=== PATIENT | female | born 1950 | race Caucasian/White ===

== ENCOUNTER 2025-03-20 10:33 | Outpatient (AMB) | payer MEDICARE, SELFPAY ==
--- NOTE | 2025-03-20 10:39 | A.OFFVIS_ITS ---
Vital Signs 3 03/20/25 10:40 Height 4 ft 11 in Weight 171 lb 1.259 oz BMI 34.5 BP 140/66 H Blood Pressure Location Rt brachial Position Sitting Pulse 76 Pulse Source Pulse Oximeter Pulse Oximetry (%) 96 Oxygen Delivery Method Room Air Intake Visit Reasons: Hyperparathyroidism,Osteoporosis Intake Note: New patient present today for Hyperparathyroidism and Osteoporosis. Prototype Carpenter Required: No Accompanied by: Self / Same As Patient Allergies No Known Allergies Allergy (Verified 03/20/25 10:44) Medication List - Last Reconciled 03/20/25 by Soco Costa MD acetaminophen ER (Tylenol 8 Hour) 650 mg PO Q12H alendronate (Fosamax) 70 mg PO QWEEK amlodipine 5 mg PO DAILY aspirin 81 mg PO DAILY chlorthalidone 25 mg PO DAILY coenzyme [id number]-[id number] E 100-100 mg-unit caps PO colestipol (Colestid) 5 grams PO DAILY collagen (bov)-calcium HMB-D3 15 gram-3 gram- 12.5 mcg/scoop sc PO dicyclomine 10 mg PO BID ergocalciferol (vitamin D2) 50 mcg PO DAILY meloxicam 15 mg PO DAILY omega-3 fatty acids 1,000 mg PO DAILY trazodone 25 mg PO DAILY upadacitinib ER (Rinvoq) 45 mg PO DAILY vitamins A,C,M-qxfq-mcrdzx 4,296 mcg-226 mg-90 mg (PreserVision AREDS) 1 cap PO BID HPI Comments Details: 74-year-old female here today for initial evaluation of osteoporosis/history of hyperparathyroidism. Was previously seeing Dr. Rodolfo Michael , at [facility] he is retired now so [facility], last seen spring 202401/17/2024 DEXA scan showed osteoporosis of the hip with a left femoral neck T- score of-2.9, osteopenia at the total hip with a T-score of-1.7, normal bone density of the forearm with T-score of -0.1. Patient brought in records of bone density from 2021, these are not scanned into her chart, shows osteoporosis of the femoral neck with a T-score of-2.7, osteopenia of the total hip with T-score of-1.6, normal bone density of the forearm with T-score of-0.4 at the 1/3 forearm. Osteoporosis new pt evaluation Post menopausal osteoporosis: Diagnosed in 2020 after she has kyphoplasty for L1-L5 compression after picking up a table Fracture History: 2020 :kyphoplasty for L1-L5 compression after picking up a table Height loss:was 5 ' 1 max height current 4' 11 Back pain: none Pharmacotherapeutic hx: fosamax 70 mg weekly since 2020 swictched Risedronate December 2022 restarted Fosamax October 012023 Family history: no history of osteoporosis, no parent fractured a hip Estrogen use: no major OCP use, 1 1 live , never breast fed Menstrual hx: post menopausal since late 30s, no HRT, per patient no investigation done Secondary risk factors: Steroid use: yes in the past for at least a year on prednisone on Crohns disease , budesonide November to January 2024 Hyperthyroidism: Neg Seizure medication use: None Chemo or Radiation use: Neg Heparin Use: Neg History of eating disorder: Negative salvage determiner immobilization: Negative History of kidney stones or disease: negative PI Use: no chronic use Chronic inflammatory lung disease: Negative Chronic inflammatory bowel disease: Crohns disease on Rinvoq Daily calcium intake: not on any calcium supplements , milk : none, cheese: daily one serving, yogurt: once in a while green leafy vegetable not much Vitamin D intake:1000 units daily , for the last year over 2023 Exercise:walks 5000s steps/20 mins daily Smoking history: quit 2008 , since age 15, 3 packs a week Dental: Has regular dental cleaning, no issues Physical exam General: sitting comfortably in no acute distress HEENT: normocephalic/atraumatic Cardiac: Regular heart rate Pulm: Normal pulmonary effort [facility] Medical History (Updated 03/20/25 @ 11:51 by Soco Costa MD) Osteoporosis Surgical History (Updated 03/20/25 @ 10:51 by Kirstie Carpenter CMA) History of intestinal surgery H/O kyphoplasty History of tonsillectomy History of appendectomy History of resection of terminal ileum Family History (Updated 02/26/25 @ 11:24 by BRIGETTE Cook) Mother End stage renal disease Father No problems noted. Social History Alcohol intake: current Alcohol intake frequency: a few times a month Patient Tobacco Use Status: Never used Tobacco Physical Exam Vital Signs: Last Vital Signs Pulse 76 03/20/25 10:40 BP 140/66 H 03/20/25 10:40 Pulse Ox 96 03/20/25 10:40 Oxygen Delivery Method Room Air 03/20/25 10:40 BMI result Body Mass Index 34.5 Assessment & Plan Assessment & Plan (1) Osteoporosis: Code(s): M81.0 - Age-related osteoporosis without current pathological fracture Category: Medical Qualifiers: Osteoporosis type: age-related Presence of current pathological fracture: without current pathological fracture Qualified Code(s): M81.0 - Age- related osteoporosis without current pathological fracture Plan: 74-year-old female coming in today for initial evaluation of osteoporosis with a history of hyperparathyroidism? Osteoporosis was diagnosed in 2020 after she had a L1-L5 compression fracture, fragility fractures status post kyphoplasty, started on Fosamax 70 mg weekly, she was switched to risedronate December 2022 due to issues with acid reflux and then due to insurance issues went back on Fosamax September 2023 which she continuous. No other fractures. 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 She has never had any parathyroid surgery. I do not have records of this hyperparathyroidism history in detail. Maybe it was secondary hyperparathyroidism in the setting of vitamin-D deficiency or poor nutritional intake of calcium. I would like to do blood work to look at her PTH levels and other labs that are related. However right now she barely has not any nutritional intake of calcium, I have asked her to continue vitamin-D 1000 units daily and increase nutritional intake of calcium and then do blood work in 8 weeks. We will also check her resorption markers have that time. 01/17/2024 DEXA scan showed osteoporosis of the hip with a left femoral neck T- score of-2.9, osteopenia at the total hip with a T-score of-1.7, normal bone density of the forearm with T-score of -0.1.Patient brought in records of bone density from 2021, these are not scanned into her chart, shows osteoporosis of the femoral neck with a T-score of-2.7, osteopenia of the total hip with T-score of-1.6, normal bone density of the forearm with T-score of-0.4 at the 1/3 forearm. More or less these bone densities show persistent osteoporosis of the left femoral neck with a bone density overall stable. She would be due for repeat bone density scan in December 2025. At that time she would have also completed a 5 year course of bisphosphonates, and we will decide if we can do a drug holiday versus if her bone density has worsened, does she need other medications. For now we will continue her on Fosamax. Plan: -Restart vitamin-D 1000 units daily -Incorporate 1000 mg of calcium in your diet, this usually amounts to 3 servings of calcium rich foods daily such as milk, yogurt, cheese -Continue Fosamax 70 mg weekly tablet -In about 8 weeks do blood work fasting around 08:00 at [facility], papers given to patient, please make sure they fax results to me -Do bone density scan in December 2025 -I will see you back in July 2025 to go over the results of your blood work Plan I spent 45 minutes in reviewing the record, seeing the patient and documenting in the medical record. Orders: Orders 2 Parathyroid Hormone Intact 8 Weeks M81.0 - Age-related osteoporosis without current pathological fracture Alkaline Phosphatase Bone 8 Weeks M81.0 - Age-related osteoporosis without current pathological fracture Collagen Type I C-Telopeptide 8 Weeks M81.0 - Age-related osteoporosis without current pathological fracture Creatinine 8 Weeks M81.0 - Age-related osteoporosis without current pathological fracture Immunofixation Pnl, Serum 8 Weeks M81.0 - Age-related osteoporosis without current pathological fracture XR DEXA appendicular skeleton 01/16/26 M81.0 - Age-related osteoporosis without current pathological fracture Albumin Level 8 Weeks M81.0 - Age-related osteoporosis without current pathological fracture Calcium 8 Weeks M81.0 - Age-related osteoporosis without current pathological fracture Calcium, Ionized 8 Weeks M81.0 - Age-related osteoporosis without current pathological fracture Phosphorus 8 Weeks M81.0 - Age-related osteoporosis without current pathological fracture Vitamin D 25-OH Total 8 Weeks M81.0 - Age-related osteoporosis without current pathological fracture Magnesium 8 Weeks M81.0 - Age-related osteoporosis without current pathological fracture Protein Electrophoresis, Serum 8 Weeks M81.0 - Age-related osteoporosis without current pathological fracture Medications: New 2 alendronate (Fosamax) 70 mg PO QWEEK 14 tabs 2RF Patient Instructions: Restart by vitamin-D 1000 units daily Incorporate 1000 mg of calcium in your diet, this usually amounts to 3 servings of calcium rich foods daily such as milk, yogurt, cheese Continue Fosamax 70 mg weekly tablet In about 8 weeks do blood work fasting around 08:00 at [facility], papers given to patient, please make sure they fax results to me Do bone density scan in December 2025 I will see you back in July 2025 to go over the results of your blood work Coding Level of Care Code New Pt Level 4 (22970) Diagnoses Age-related osteoporosis without current pathological fracture M81.0 Osteoporosis type: age-related Presence of current pathological fracture: without current pathological fracture Time Spent (min) 45
[2025-03-20 10:40] VITALS: BP 140/66; PULSE 76; O2SAT 96; BMI 34.5
--- OUTSIDE RECORDS SUMMARY | 2025-03-20 12:21 | XMS_ITS | Clinical Summary ---
Author Organization [facility] Address [address] [place] [address] Care Team Providers Care Calender Feeder Name Role Phone Lexus Barnes Primary Care Provider Anita vailable Allergies No known active allergies Medications Medication Sig Dispensed Refills Start Date End Date Status Multiple Vitamins-Minerals (MULTIVITAMIN ADULT PO) Take 1 tablet by mouth daily. 0 Active acetaminophen (Acetaminophen 8 Hour) 650 MG CR tablet Take 650 mg by mouth every 8 (eight) hours as needed for pain. 0 Active colestipol (COLESTID) 5 g packet Take 5 g by mouth 2 (two) times a day. 0 Active chlorthalidone (HYGROTON) 25 MG tablet Take 25 mg by mouth daily. 0 Active vitamin C (ASCORBIC ACID) 250 MG tablet Take 1,000 mg by mouth daily. 0 Active oxyCODONE-acetaminophe n (Percocet) 5-325 MG per tablet Take 1 tablet by mouth every 8 (eight) hours as needed for pain. 0 Active calcium citrate-vitamin D (CITRACAL+D) 315-200 MG-UNIT per tablet Take 2 tablets by mouth daily. 0 Active Docusate Sodium (COLACE PO) Take by mouth every other day. 0 Active Active Problems Problem Noted Date Diagnosed Date Crohn's disease 07/02/2020 Reactive leukocytosis 07/02/2020 Reactive thrombocytosis 05/25/2020 Overview: Overview: Mild leukocytosis with macrocytosis. Referred to hematology. Compression fracture of L3 vertebra 04/19/2020 Diplopia 07/26/2019 Overview: Overview: Dr Vigil-MRI brain-07/16/2019-scattered foci of T2 signal abnormality in the supratentorial white matter and estephanie are nonspecific, likely related to mild chronic microvascular ischemic change. No evidence of acute or subacute infarction, mass-effect or abnormal enhancement. Hypertension 05/20/2019 Class 1 obesity due to exces s calories without serious comorbidity with body mass index (BMI) of 32.0 to 32.9 in adult 05/02/2017 S/P appy 04/04/2013 Osteoporosis 01/11/2011 Overview: Overview: Patient deferred Fosamax or Boniva. Will need Endo eval. Family History Medical History Relation Name Comments Diabetes Mother Kidney failure Mother Stroke Mother Diabetes Sister Heart attack Sister Relation Name Status Comments Mother Sister (Age 63) Social History Tobacco Use Types Packs/Day Years Used Date Smoking Tobacco: Every Day Cigarettes Smokeless Tobacco: Never Alcohol Use Standard Drinks/Week Comments No 0 (1 standard drink = 0.6 oz pur e alcohol) Sex and Gender Information Value Date Recorded Sex Assigned at Not on file Gender Identity Not on file Sexual Orientation Not on file Job Start Date Occupation Industry Not on file Not on file Not on file Last Filed Vital Signs Vital Sign Reading Time Taken Comments Blood Pressure 110/63 07/02/2020 10:22 AM EST Pulse 83 07/02/2020 10:22 AM EST Temperature 36.3 C (97.4 F) 07/02/2020 10:22 AM EST Respiratory Rate - - Oxygen Saturation 95% 07/02/2020 10:22 AM EST Inhaled Oxygen Concentration - - Weight 78.9 kg (174 lb) 07/02/2020 10:22 AM EST Height 154.9 cm (5' 1 ) 07/02/2020 10:22 AM EST Body Mass Index 32.88 07/02/2020 10:22 AM EST Plan of Treatment Health Maintenance Due Date Last Done Comments Hepatitis C Screening 1950 COVID-19 Vaccine (#1) 01/02/1951 Depression Screening 1961 Preventative Health Evaluation 1967 Colon Cancer Screening (Colonoscopy) 1994 Fall Risk Assessment 2014 Osteoporosis Screening (DEXA Scan) 2014 Shingrix-Zoster Vaccine (2 of 2) 03/20/2020 01/24/2020 DTap / Tdap / Td (2 - Td or Tdap) 03/22/2022 03/22/2012 RSV Adult > 60+ Yrs or (1 - 1-dose 75+ series) 2024 Influenza Vaccine (#1) 2025 0, 04/02/2019, 04/28/2018, Additional history exists Pneumococcal Vaccine Completed 05/03/2016, 03/23/2015, 11/08/2004 Hepatitis B Vaccines Aged Out No long er eligible based on patient's age to complete this topic RSV Ped < 20 months Aged Out No longe r eligible based on patient's age to complete this topic Care Teams Calender Feeder Relationship Specialty Start Date End Date Lexus Barnes PCP - General Internal Medicine 05/11/20
--- OUTSIDE RECORDS SUMMARY | 2025-03-20 12:21 | XMS_ITS ---
Author Name [facility] Organization Unknown Care Team Organization Name Specialty Phone Email Start Date End [facility] Marycruz Mitchell MD Primary Care 04/26/2022 02/05/2024
--- OUTSIDE RECORDS SUMMARY | 2025-03-20 12:21 | XMS_ITS | Continuity of Care Document ---
Author Organization [facility] Address [address] [facility] [address] [place] [id number] Insurance Providers Payer Plan Claims Address Claims Phone Policy Number Group Number Relation Employer Guarantor Name Guarantor Guarantor Address Guarantor Phone [employer] PAT[employer] S [employer] JESSICA VINES TTS [address], [place] [address] [id number] Self Vannessa Magaña 1950 [address] [place] [address] [employer] OF YO[employer]NA PATTERSON S Blue [employer] Blue Shiel d Of Jessica vines tts [address], [place] [address] tel:[phone] Self Vannessa Magaña 1950 [address] [place] [address] Problems Unknown Problems Results Test Value / Unit Interpretation Reference Ran Comp. Metabolic Panel (14)[[id number]] Collected: 05/03/2024 04:48 PM Specimen Received: 05/03/2024 05:00 AM Source: [facility] Glucose [[id number]] 95 mg/dL 70-99 mg/dL BUN [876108] 21 mg/dL 8-27 mg/dL Creatinine [501152] 0.91 mg/dL 0.57-1.0 0 mg/dL eGFR [346860] 66 mL/min/1.73 >59 mL/min/1 .73 BUN/Creatinine Ratio [419986] 23 12-28 Sodium [096685] 140 mmol/L 134-144 mmol /L Potassium [297899] 3.8 mmol/L 3.5-5.2 m mol/L Chloride [344122] 100 mmol/L 96-106 mmo l/L Carbon Dioxide, Total [863362] 25 mmol/L 20-29 mmol/L Calcium [150416] 9.8 mg/dL 8.7-10.3 mg /dL Protein, Total [826494] 6.6 g/dL 6.0- 8.5 g/dL Albumin [856817] 4.1 g/dL 3.8-4.8 g/d L Globulin, Total [908296] 2.5 g/dL 1.5 -4.5 g/dL Bilirubin, Total [547402] 0.2 mg/dL 0. 0-1.2 mg/dL Alkaline Phosphatase [359907] 53 IU/L 44-121 IU/L AST (SGOT) [060295] 30 IU/L 0-40 IU/ L ALT (SGPT) [348433] 27 IU/L 0-32 IU/ L Lipid Panel[[id number]] Collected: 05/03/2024 04:48 PM Specimen Received: 05/03/2024 05:00 AM Source: [facility] Cholesterol, Total [565209] 193 mg/dL 100-199 mg/dL Triglycerides [228186] 142 mg/dL 0-149 mg/dL HDL Cholesterol [798813] 80 mg/dL >39 mg/dL VLDL Cholesterol Ricardo [439580] 24 mg/dL 5-40 mg/dL LDL Chol Calc (NIH) [637576] 89 mg/dL 0-99 mg/dL Hemoglobin A1c[[id number]] Collected: 05/03/2024 04:48 PM Specimen Received: 05/03/2024 05:00 AM Source: [facility] Hemoglobin A1c [[id number]] 5.6 % 4.8- 5.6 % . Prediabetes: 5.7 - 6.4 Sara betes: >6.4 Glycemic control for adults with diabetes: 7.0 Allergies, adverse reactions, alerts No known allergies and adverse reactions Medications No administered medications reported Vital Signs No vital signs reported Social History No smoking Hx information available
--- OUTSIDE RECORDS SUMMARY | 2025-03-20 12:21 | XMS_ITS | Continuity of Care Document ---
Author Organization [facility] [address] [place] [address] Phone [phone] Care Team Providers Care [employer] Name Role Phone Otto Cabrera Care Team Information Receive r [phone] Problems Active Problems Provider Date Osteoporosis Rodolfo Michael M.D. Onset: 05/2022 Essential hypertension Rodolfo Michael M.D. Ons et: 02/28/2022 Osteoarthritis Rodolfo Michael M.D. Onset: Crohn's disease Rodolfo Michael M.D. Onset: Inactive Problems Hypothyroidism Rodolfo Michael M.D. Onset: 05/2022 Inactive: 05/24/2024 Social History Type Date Description Comments Sex Female Sex Unknown Tobacco Use Start: Unknown Never Smoked Cigarettes Smoking Status Reviewed: 05/24/24 Never Smoked Cigaret kallie ETOH Use Rarely consumes alcohol Allergies and adverse reactions Description No Known Drug Allergies Medications Active Medications SIG Qnty Indications Ordering Provider Date Alendronate Aokbpp39nd Tablets 1 tab by mouth every week as directed 12takathy Vasquez M.D. 11/20/2023 [id number] Tablets 1 by mouth every day 90takathy Michael M.D. 02/28/2022 Amlodipine Hyqhkjxg2eb Tablets 1 by mouth every day Rodolfo Michael M.D. Colestipol HCL5gm Packet 1packet by mouth every other day Rodolfo Avery MD [id number] Tablets ER 24HR Take 1 daily Unknown Vital Signs Date Vital Result Comment 05/24/2024 10:35am BP Systolic 150 mmHg BP Diastolic 102 mmHg Heart Rate 97 /min Height 60 inches 5'0 Weight 175.12 lb BMI (Body Mass Index) 34.2 kg/m2 Results Test Acquired Date Facility Test Result H/L Range Note Albumin 07/30/2024 [facility] Albumin 4.2 g/dL 3.8-4.8 PTH, Intact 07/30/2024 [facility] PTH, Intact 71 pg/mL High 15-65 Vitamin D, 25-Hydroxy 07/30/2024 [facility] Vitamin D, 25-Hydroxy 24.2 ng/mL Low 30.0-100.0 1 Phosphorus 07/30/2024 [facility] Phosphorus 3.2 mg/dL 3.0-4.3 Alkaline Phosphatase 07/30/2024 [facility] Alkaline Phosphatase 67 IU/L 44-121 N-Telopeptide, Urine 07/30/2024 [facility] N-Telopeptide 250 nmolBCE Not Estab. Creatinine, Urine 100.3 mg/dL Not Estab. N-Telo/Creat. Ratio 28 nMBCE/mMCr 0-89 Interpretive Guide: See Comment: 2 Calcium 07/30/2024 [facility] Calcium 9.9 mg/dL 8.7-10.3 Cortisol, Urinary Free By HPLC 05/30/2024 [facility] Cortisol,F,ug/ L,U 5 ug/L Undefined Cortisol,F,ug/ 24hr,U 9 ug/24hr 6-42 Calcium, 24HR Urine 05/30/2024 [facility] Calcium, Urine 1.3 mg/dL Not Estab. Calcium, Urine 24hr 24 mg/24hr 0-320 Creatinine, 24-Hour Urine 05/30/2024 [facility] Creatinine, Urine 51.7 mg/dL Not Estab. Creatinine, Ur 24hr 956 mg/24hr 800-1800 PTH, Intact 05/27/2024 [facility] PTH, Intact 81 pg/mL High 15-65 Phosphorus 05/27/2024 [facility] Phosphorus 3.1 mg/dL 3.0-4.3 TSH+Free T4 05/27/2024 [facility] TSH 3.760 uIU/mL 0.450-4.500 T4,Free(Direct ) 1.32 ng/dL 0.82-1.77 Calcium 05/29/2023 [facility] Calcium 9.9 mg/dL (8.6-10.5) Albumin 05/29/2023 [facility] Albumin 4.0 GM/DL (3.4-4.8) 25Oh Vitamin D 05/29/2023 [facility] 25Oh Vitamin D 25.2 NG/ML (20-50) Complete Auto Blood Count 09/02/2022 [facility] WBC 9.5 K/MM3 (4.0-11.0) RBC 4.35 M/MM3 (4.20-5.40) HGB 13.4 GM/DL (11.7-15.5) HCT 41.1 % (35.7-45.8) MCV 94.5 FL (80.0-100.0 ) MCH 30.8 pg (27.0-34.0) MCHC 32.6 g/dL Low (33.0-37.0) PLT 480 K/MM3 High (150-460) RDW-SD 51.2 FL High (<47.0) MPV 9.4 FL (9.4-12.4) Automated NRBC 0.0 #/100WBC'S Abs. NRBC 0.0 K/MM3 Cholesterol, Total 09/02/2022 [facility] Cholesterol, Total 195 mg/dL (<200) Comprehensive Metabolic Panl 09/02/2022 [facility] Glucose 99 mg/dL (70-99) BUN 24 mg/dL High (8-23) Creatinine 0.8 mg/dL (0.5-1.0) Sodium 141 mmol/L (133-145) Potassium 4.0 mmol/L (3.6-5.2) Chloride 102 mmol/L (98-107) Bicarbonate 29 mmol/L (22-29) Anion Gap 10 (4-17) Albumin 4.3 GM/DL (3.4-4.8) Calcium 9.6 mg/dL (8.6-10.5) Bilirubin,Tota l 0.2 mg/dL (0-1.2) Total Protein 6.6 GM/DL (6.2-8.2 ) Ag Ratio 1.9 Ast 22 U/L (0-32) Alk Phos 66 U/L (35-104) Alt 24 U/L (0-33) Estimated GFR Creatinine 73 ML/MIN/1.7 3M2 3 LDL Cholesterol, Direct 09/02/2022 [facility] LDL Cholesterol, Direct 100 mg/dL (<130) Iron & Tibc 09/02/2022 [facility] Iron 86 g/dL (30-160) Unsaturated Iron Binding [place] 300 g/dL (110-370) Est T. Iron Bind Capacity 386 g/dL (140-530) % Iron Saturation 22 % (20-55) HDL Chol 09/02/2022 [facility] HDL Chol 69 mg/dL (>39) Anti-Hepatitis C 09/02/2022 [facility] Anti-Hepatitis C NEGATIVE Normal (Neg) 4 Vitamin B12 09/02/2022 [facility] Vitamin B12 303 pg/mL (232-1245) Ferritin 09/02/2022 [facility] Ferritin 53 NG/ML (14-283) 25Oh Vitamin D 09/02/2022 [facility] 25Oh Vitamin D 29.7 NG/ML (20-50) Urinary Microalbumin 09/02/2022 [facility] Micro-Albumin <12.0 mg/L (<20) 5 Malb/Creat Ratio Unable to calcul <SEE NOTE> MG/GM (0-20) 6 Urine Creat For Micro Albumin 112.0 mg/dL TSH With Reflex To FT4 08/22/2022 [facility] TSH With Reflex To FT4 4.13 uIU/mL (0.4-4.2) Free T4 08/22/2022 [facility] Free T4 1.25 ng/dL (0.70-1.80) 1 Vitamin D deficiency has been defined by the [place] of [employer] and an Endocrine Society practice guideline as a level of serum 25-OH vitamin D less than 20 ng/mL (1,2). The Endocrine Society went on to further define vitamin D insufficiency as a level between 21 and 29 ng/mL (2). 1. IOM ([place] of [employer]). 2010. Dietary reference intakes for calcium and D. [place]: The National Academies Press. 2. Charles MF, Radha NC, Connie MAYEN, et al. Evaluation, treatment, and prevention of vitamin D deficiency: an Endocrine Society clinical practice guideline. JCEM. 2010; 96(7):1911-30. 2 The N-telopeptide an d Creatinine are used to calculate the N-telo/Creat. Ratio which is referred to as NTx . Suggested guidelines for the clinical use of NTx are as follows: 1. Menopausal Women not on Hormone Replacement Therapy (HRT): Women with a baseline NTx value >38 are at significant risk for a decrease in bone mineral density (BMD) after 1 year compared to women on HRT. The probability of a decline in BMD increases with NTx value as follows: (1): Baseline NTx Probability of Decrease in BMD 18- 38 1.4 p=0.28 38- 51 2.5 p=0.03 51- 67 3.8 p=0.0006 67-188 17.3 p=0.0001 2. Menopausal Women Receiving Antiresorptive Therapy: The probability that treatment is effective after three months is increased when the measured NTx value is <or=38 nM BCE/mM PRIMARY SPECIAL EDUCATOR, or NTx has decreased >or=30% from baseline.[1] 3. Patients with Paget's Disease of Bone: The probability that treatment is effective after one month is increased when the measured NTx value is within the reference range, or NTx has decreased >or=30% from baseline.[2] 1. Chinyere CH, Stevens NH, Dariusz GS, et al. Am J Med, 102:29-37,1997. (1):M757, 1996. 2. Bone H, Otilia J, et al. J Bone Min Res.11(1):M757,1996 3 Creatinine based est imated glomerular filtration (eGFR) in adults is calculated using the National Kidney Foundation recommended 2020 CKD-EPI equation. Estimates GFR from serum creatinine, age and sex. 4 Reference range: Neg ative This test was performed on the [employer] immunoassay system. 5 The urine microalbum in test is designed to monitor renal function. When screening for Bence Howard proteinuria, urine electrophoresis is recommended. 6 Unable to calculate Procedures Date Code Description Status 12/02/2024 NSHOWOFF No Show Office Visit Complet ed Medical Devices Description No Information Available Encounters Type Date Location Provider Dx Diagnosis Office Visit 05/24/2024 10:30a Main Office JAMEL Branham M81.0 Age-related osteoporosis w/o current pathological fracture Assessments Date Code Description Provider 05/24/2024 M81.0 Age-related oste oporosis without current pathological fracture JAMEL Branham Plan of Treatment 05/24/2024 - JAMEL Branham* M81.0 Age-related osteoporosis without current pathological fracture* New Xrays:* XR Thoracic Spine 2 Views, Ordered: 05/24/24 Functional Status Description No Information Available Mental Status Description No Information Available Referrals Description No Information Available
--- OUTSIDE RECORDS SUMMARY | 2025-03-20 12:21 | XMS_ITS | Clinical Summary ---
Author Organization [facility] [address] [facility] Address [address] [place] [address] Phone Care Team Providers Care Retail Sales Director Name Role Phone Kelly Christianson MD Primary Care Provider Allergies No known active allergies Medications chlorthalidone (HYGROTON) 25 mg tablet Take 1 Tablet by mouth daily. 3 Active amLODIPine (NORVASC) 5 mg tablet Take 1 Tablet by mouth daily. 3 Active alendronate (FOSAMAX) 70 mg tablet Take 1 tablet by mouth every 7 days. Take on empty stomach with 8 oz of water. Do not lay down after taking medication. 1 Active vit C/E/Zn/coppr/lut ein/zeaxan (PRESERVISION AREDS-2 ORAL) Take by mouth 2 times daily. Active colestipoL (COLESTID) 5 gram packet MIX AND DRINK 1 PACKET (5 GRAMS) TWICE A DAY 0 Active upadacitinib (Rinvoq) 30 mg tablet extended release 24 hr Take by mouth. A ctive coenzyme Q-10 100 mg capsule Take 1 capsule (100 mg total) by mouth 1 (one) time each day. Active microfibrillar collagen powder Apply topically if needed for wound care. Active calcium carb/vitamin D3/vit K1 (CALCIUM-VITAMIN D3-VITAMIN K ORAL) Take by mouth. Activ e budesonide DR (ENTOCORT EC) 3 mg 24 hr capsuleIndicatio ns:Crohn's disease of both small and large intestine with intestinal obstruction (CMS/HCC V24, CMS/HCC V28) TAKE 3 CAPSULES BY MOUTH EVERY MORNING FOR 1 MONTH AND CALL OFFICE TO DISCUSS TAPER 270 capsule 2 5 03/26/20 25 Active Additional Information Patient not taking.Reported on 01/28/2025 aspirin 81 mg EC tablet Take 1 tablet (81 mg total) by mouth 1 (one) time each day. Active Active Problems Problem Noted Date Diagnosed Date Class 1 obesity due to exces s calories without serious comorbidity with body mass index (BMI) of 32.0 to 32.9 in adult 06/10/2024 Central obesity 12/03/2021 Thrombocytosis 05/25/2020 Overview (06/10/2024): Mild leukocytosis with macrocytosis. Possible inflammatory from crohns-seen by Dr Mitchell Compression fracture of L3 lumbar vertebra, sequ nikko 04/19/2020 Overview (06/10/2024): Referred to Neurosurg for vertebroplasty Diplopia 07/26/2019 Overview (06/10/2024): Dr Vigil-MRI brain-07/16/2019-scattered foci of T2 signal abnormality in the supratentorial white matter and estephanie are nonspecific, likely related to mild chronic microvascular ischemic change. No evidence of acute or subacute infarction, mass-effect or abnormal enhancement. Hypertension 05/20/2019 Crohn's disease of both smal l and large intestine with intestinal obstruction (CMS/HCC V24, CMS/HCC V28) 05/01/2019 Assessment & Plan (01/28/2025 2:32 PM EDT): 74-year-old female with history of ileocolonic Crohn's disease presenting for follow-up. Unfortunately she just shows no significant improvement despite the use of Humira, Rynvoq as well as budesonide currently. Review means of imaging studies document some improvement though persistent inflammatory changes of the distal small bowel and colon. Discussion was had as to the options the patient has including changing to a new medication of a different class such as Entyvio. Also discussed the option of a second opinion. 1. Wean off of budesonide. I recommended patient decrease to 1 tablet a day for 10 days and then off as it appears to be not improving her situation. 2. Discussed with patient potential change to Entyvio. Patient would like to contemplate her options. 3. Will reach out to patient next week to reevaluate other potential medication options. 4. Discussed potential role of a second opinion either here in [place] or at a IBD center. 5. Continue to observe. Assessment & Plan (10/01/2024 1:35 PM EDT): 74-year-old female with history of reported ileocolonic Crohn's disease presenting for follow-up. According to the patient, the use of her now second biologic has not really improved her symptomatology. We did spend some time reviewing her initial MRI suggesting small bowel pathology. We discussed the possibility that her symptoms currently are not related to Crohn's disease but more related to the irritable bowel syndrome. I expressed my reluctance and shifting Biologics without further objective data as to the status of her small bowel. We discussed the possibility that she may not need the biologic therapy and she may benefit from IBS therapy. Therefore we will obtain further objective data with the MRI. 1. MR enterography to be ordered for at [facility] to compare with prior study. 2. Continue current medication profile for now. 3. Should the MRI be negative, would consider discontinuing the biologic and ramping up antispasmodic therapy. 4. Routine follow-up in 3 months. 5. Will reach out after imaging testing. Orders: MR Enterography (Abd/Pelvis) wo and w Contrast; Future Osteoporosis 01/11/2011 Overview (06/10/2024): Patient deferred Fosamax or Boniva. Seen donovan Mitchell in onc- Zolendronic acid once a year recommended Crohn's disease (CMS/HCC V24, CMS/HCC V28) 12/30 Overview (06/10/2024): Had bowel resection 1977 Encounters Date Type Department Care Team Description 02/03/2025 Telephone Gastroenterology - [address] [facility] [address] [place] [address] Rodolfo Avery MD 01/29/2025 Telephone Gastroenterology - [address] [facility] [address] [place] [address] Rodolfo Avery MD 01/28/2025 2:20 PM EDT Office Visit Gastroenterology - [address] [place] [address] Rodolfo Avery MD Crohn's disease of both small and large intestine with intestinal obstruction (CMS/HCC V24, CMS/HCC V28) (Primary Dx) 01/06/2025 Telephone Gastroenterology - [address] [place] [address] Mitzi Cook PA from Last 3 Months Immunizations Immunization Administration Dates Next Due Influenza trivalent, 0.5mL ( Fluzone High-dose) 65yo and older 03/06/2020,04/02/2019,04/28/2018 Influenza trivalent, with pr eservative (Fluzone; Afluria) 6mo and older 04/18/2016,03/23/2015,04/01/2014,04/04,03/22/2012,03/05/2010 Influenza, Unspecified 05/03/2022,04/09/2017 [email or web address] SARS-CoV-2 COVID-19, mRNA, LNP-S, preservative free 09/30/2020,09/09/2020 Pneumococcal conjugate 13 va lent (Prevnar 13, PCV13) 2mo and older 03/23/2015 Pneumococcal polysaccharide 23 valent (Pneumovax 23) 2yo and older 05/03/2016,11/08/2004 Td Tetanus diptheria (Tdvax) 7yo and older 08/19/2005 Tdap Tetanus diptheria acell ular pertussis (Boostrix; Adacel) 7yo and older 03/22/2012 Zoster Live 12/30/2010 Zoster recombinant (Shingrix ) 19yo and older 01/24/2020 Surgical History Surgery Date Site/Laterality Comments BOWEL RESECTION 1976 PROCEDURE: HISTORICAL BOWEL RESECTION BREAST SURGERY 2019 Left PROCEDURE: DC UNLISTED PROCEDURE BREAST; COMMENT: benign COLONOSCOPY 07/28/2011 PROCEDURE: HISTORICAL COLONOSCOPY; COMMENT: mild ulceration at ileo-ascending anastomosis APPENDECTOMY PROCEDURE: DC APPENDECTOMY TONSILLECTOMY ADENOIDECTOMY, BILATERAL MYRINGOTOMY AND TUBES PROCEDURE: DC TONSILLECTOMY & ADENOIDECTOMY <AGE 12 BACK SURGERY 06/2020 PROCEDURE: HISTORICAL BACK SURGERY; COMMENT: L3-5 kyphoplasty COLONOSCOPY W/ BIOPSIES 10/17/2021 - 11/16/2021 Medical History Medical History Date Comments Osteopenia 01/11/2011 DX:Osteopenia S/P appy 04/04/2013 DX:S/P appy Essential hypertension DX:Essent ial hypertension Obesity History of resection of terminal ileum IBS (irritable bowel syndrome) Leukocytosis Low vitamin D level Family History Medical History Relation Name Comments Diabetes Mother Stroke Mother Diabetes Sister 1 Heart attack Sister 2 age 63, Breast cancer Neg Hx Relation Name Status Comments Father Mother renal failure Sister 1 Sister 2 Sister 3 Alive Sister 4 from [place] Son Alive Social History Tobacco Use Types Packs/Day Years Used Date Smoking Tobacco: Former Cigarettes 0.5 38.6 0 1970 - 02/17/2009 Smokeless Tobacco: Never Tobacco Cessation:Counseling Given: Not Answered Alcohol Use Standard Drinks/Week Comments Yes 0 (1 standard drink = 0.6 oz pur e alcohol) rare Comments Unknown Sex and Gender Information Value Date Recorded Sex Assigned at Female 09/05/2024 11:33 AM EDT Legal Sex Female 7:13 PM EST Gender Identity Female 09/05/2024 11:33 AM EDT Sexual Orientation Not on file Obstetrics History Last Filed Vital Signs Vital Sign Reading Time Taken Comments Blood Pressure 153/64 11/06/2024 11:24 AM EDT Pulse 74 11/06/2024 11:24 AM EDT Temperature 36.9 C (98.5 F) 11/06/2024 11:24 AM EDT Respiratory Rate - - Oxygen Saturation 100% 11/06/2024 11:24 AM EDT Inhaled Oxygen Concentration - - Weight 78.7 kg (173 lb 9.6 oz) 01/28/2025 1:59 P M EDT Height 149.9 cm (4' 11 ) 01/28/2025 1:59 PM EDT Body Mass Index 35.06 01/28/2025 1:59 PM EDT Plan of Treatment Health Maintenance Due Date Last Done Comments Falls Risk Assessment 05/28/2022 Medicare Annual Wellness Visit 05/28/2022 Social Influencers of Health Screening 05/28/2022 Hypertension/CHF/CAD Annual BMP Blood Test 08/02/2023 08/02/2022 Depression Screening 06/19/2024 RSV Immunization Adult Patients (1 - 1-dose 75+ series) 2024 COVID-19 Vaccine (4 - 2024- season) 2025 06/08/2021, 09/30/2020, 09/09/2020 Influenza Vaccine (#1) 2025 , 04/20/2023, 05/03/2022, Additional history exists Cholesterol Screening (Lipid Panel) 12/30/2026 12/30/2021 Osteoporosis Screening (Bone Density Screening) 05/02/2027 05/02/2017 Colorectal Cancer Screening: Colonoscopy 10/30/2031 10/29/2021, 10/29/2021 DTaP,Tdap,and Td Vaccines (5 - Td or Tdap) 02/02/2033 02/02/2023, 03/22/2022, 03/22/2012, Additional history exists Hepatitis C Screening Completed 04/04/2013 Zoster Vaccines Completed 05/02/2020, 12/2019, 12/30/2010 Pneumococcal Vaccine: 50+ Years Completed 08/29/2022, 05/03/2016, 05/03/2016, Additional history exists Hepatitis B Vaccines Completed 11/14/2024, 09/03/2024, 05/31/2024 HIB Vaccines Aged Out No longer eligi ble based on patient's age to complete this topic HPV Vaccines Aged Out No longer eligi ble based on patient's age to complete this topic Hepatitis A Vaccines Aged Out No long er eligible based on patient's age to complete this topic IPV Vaccines Aged Out No longer eligi ble based on patient's age to complete this topic MMR Vaccines Aged Out No longer eligi ble based on patient's age to complete this topic Meningococcal ACWY Vaccine Aged Out N o longer eligible based on patient's age to complete this topic Meningococcal B Vaccine Aged Out No l onger eligible based on patient's age to complete this topic RSV Immunization Patients Under 20 months Aged Out No longer eligible based on patient's age to complete this topic Varicella Vaccines Aged Out No longer eligible based on patient's age to complete this topic Procedures Procedure Name Priority Date/Time Associated Diagnosis Comments HM ANNUAL BMP BLOOD TEST Routine 08/02/2022 LIPID PANEL Routine 12/30/2021 COLONOSCOPY Routine 10/29/2021 DXA BONE DENSITY STUDY 1+ SITS AXIAL SKEL Routine 05/02/2017 10:48 AM EST Other specified disorders of bone density and structure, unspecified site HEPATITIS C SCREENING Routine 04/04/2013 from Last 3 Months or Most Recently Relevant to Health Maintenance Results * Annual BMP Blood Test (08/02/2022) [facility] Annual BMP Blood Test abstracted [facility] Provider HEALTH MAINTENANCE Final Result * (ABNORMAL) Lipid panel (12/30/2021) [facility] LDL/HDL Ratio 3 0 - 4 Triglycerides 250(A) 0 - 150 mg/dL Cholesterol 191 0 - 200 mg/dL HDL 62 >=40 mg/dL LDL Cholesterol 79 0 - 100 mg/dL Blood Venous blood specimen / Unknown [facility] Provider LAB BLOOD ORDERABLES Pricila l Result * Colonoscopy (10/29/2021) [facility] Colonoscopy no interpretation , abstracted Anatomical Region Laterality Modality Other [facility] Provider HEALTH MAINTENANCE Final Result * DXA BONE DENSITY STUDY 1+ SITS AXIAL SKEL (05/02/2017 10:48 AM EST) Anatomical Region Laterality Modality Bone Densitometr y 02/28/2017 11:4 2 AM EDT Narrative 05/02/2017 1:36 PM EST BONE DENSITY Lumbar Spine T-score is -1.9 (SD relative to 20-29 y/o adult) Z-score is +0.1 (SD relative to age matched peers) This is consistent with osteopenia by criteria defined by the WHO. Left Hip T-score is -2.8 Z-score is -1.1 This is consistent with osteoporosis by criteria defined by the WHO. Comparison exam(s): no statistically significant change in the bone density of the hip and lumbar spine when compared to most recent bone density examination Confidence level is +/-95%. Impression: Based on the World Health Organization criteria, Vannessa Magaña should be classified as having osteoporosis. [facility] Department of Internal Medicine recommends using National Osteoporosis Foundation (NOF) guidelines in treatment decisions related to osteoporosis. NOF guidelines suggest considering treatment for postmenopausal women and men aged 50 or older presenting with the following: History of hip or vertebral fracture. T-score less than or equal to -2.5 (DXA) at the femoral neck, total hip, or spine, after appropriate evaluation to exclude secondary causes. Low bone mass (T-score between -1.0 and -2.5 at the femoral neck or spine) AND a 10-year probability of a hip fracture greater than or equal to 3% OR a 10-year probability of a major osteoporosis-related fracture greater than or equal to 20% based on the [place]-adapted WHO algorithm Please note that all treatment decisions require clinical judgment and consideration of individual patient factors, including patient preferences, co-morbidities, previous drug use, risk factors not captured in the FRAX model (e.g., frailty, falls, vitamin D deficiency, increased bone turnover, interval significant decline in bone density) and possible under- or over-estimation of fracture risk by FRAX. Procedure Note Carmine Christianson MD - 07/21/2023 BONE DENSITY Lumbar Spine T-score is -1.9 (SD relative to 20-29 y/o adult) Z-score is +0.1 (SD relative to age matched peers) This is consistent with osteopenia by criteria defined by the WHO. Left Hip T-score is -2.8 Z-score is -1.1 This is consistent with osteoporosis by criteria defined by the WHO. Comparison exam(s): no statistically significant change in the bonedensity of the hip and lumbar spine when compared to most recent bonedensity examination Confidence level is +/-95%. Impression: Based on the World Health Organization criteria, Vannessa Magaña should beclassified as having osteoporosis. [facility] Department of Internal Medicine recommendsusing National Osteoporosis Foundation (NOF) guidelines in treatmentdecisions related to osteoporosis. NOF guidelines suggest consideringtreatment for postmenopausal women and men aged 50 or older presentingwith the following: History of hip or vertebral fracture. T-score less than or equal to -2.5 (DXA) at the femoral neck, total hip,or spine, after appropriate evaluation to exclude secondary causes. Low bone mass (T-score between -1.0 and -2.5 at the femoral neck or spine)AND a 10-year probability of a hip fracture greater than or equal to 3% ORa 10-year probability of a major osteoporosis-related fracture greaterthan or equal to 20% based on the [place]-adapted WHO algorithm Please note that all treatment decisions require clinical judgment andconsideration of individual patient factors, including patientpreferences, co-morbidities, previous drug use, risk factors not capturedin the FRAX model (e.g., frailty, falls, vitamin D deficiency, increasedbone turnover, interval significant decline in bone density) and possibleunder- or over-estimation of fracture risk by FRAX. Lexus Barnes MD IMG DXA PROCEDURES Pricila l Result * Hepatitis C Screening (04/04/2013) [facility] Hepatitis C Screening abstracted Historical Provider HEALTH MAINTENANCE Final Result from Last 3 Months or Most Recently Relevant to Health Maintenance Insurance [facility] MEDICARE ADVANTAGE [facility] MEDICARE ADVANTAGE GENERIC on file Advance Directives Documents on File Type Date Recorded Patient Electronic Health Records Specialist Expl [facility] Health Care Decision (hx) 08/09/2020 AD PHILIPPE DIRECTIVE Care Teams Retail Sales Director Relationship Specialty Start Date End Date Kelly Christianson MD [address] [place] [address] PCP - General Internal Medicine 06/07/24
--- OUTSIDE RECORDS SUMMARY | 2025-03-20 12:21 | XMS_ITS | Continuity of Care Document ---
Author Organization [facility] Address [address] [facility] [address] [place] [id number] Insurance Providers Payer Plan Claims Address Claims Phone Policy Number Group Number Relation Employer Guarantor Name Guarantor Guarantor Address Guarantor Phone [employer] JESSICA VINES TTS [address], [place] [address] [id number] Self Vannessa Magaña [address] [place] [address] [employer] OF [employer] S Blue [employer] Blue Shiel d Of Jessica vines tts [id number], [place] [address] tel:[phone] Self Vannessa Magaña [address] [place] [address] Problems Unknown Problems Results Test Value / Unit Interpretation Reference Ran Comp. Metabolic Panel ([id number]] Collected: 05/03/2024 04:48 PM Specimen Received: 05/03/2024 05:00 AM Source: [facility] Glucose [950941] 95 mg/dL 70-99 mg/dL BUN [303868] 21 mg/dL 8-27 mg/dL Creatinine [559306] 0.91 mg/dL 0.57-1.0 0 mg/dL eGFR [944848] 66 mL/min/1.73 >59 mL/min/1 .73 BUN/Creatinine Ratio [301548] 23 12-28 Sodium [082999] 140 mmol/L 134-144 mmol /L Potassium [428207] 3.8 mmol/L 3.5-5.2 m mol/L Chloride [061324] 100 mmol/L 96-106 mmo l/L Carbon Dioxide, Total [877454] 25 mmol/L 20-29 mmol/L Calcium [862911] 9.8 mg/dL 8.7-10.3 mg /dL Protein, Total [693942] 6.6 g/dL 6.0- 8.5 g/dL Albumin [718793] 4.1 g/dL 3.8-4.8 g/d L Globulin, Total [916396] 2.5 g/dL 1.5 -4.5 g/dL Bilirubin, Total [813144] 0.2 mg/dL 0. 0-1.2 mg/dL Alkaline Phosphatase [121879] 53 IU/L 44-121 IU/L AST (SGOT) [551784] 30 IU/L 0-40 IU/ L ALT (SGPT) [940766] 27 IU/L 0-32 IU/ L Lipid Panel[[id number]] Collected: 05/03/2024 04:48 PM Specimen Received: 05/03/2024 05:00 AM Source: [facility] Cholesterol, Total [442620] 193 mg/dL 100-199 mg/dL Triglycerides [082587] 142 mg/dL 0-149 mg/dL HDL Cholesterol [420229] 80 mg/dL >39 mg/dL VLDL Cholesterol Ricardo [274199] 24 mg/dL 5-40 mg/dL LDL Chol Calc (NIH) [411223] 89 mg/dL 0-99 mg/dL Hemoglobin A1c[082999] Collected: 05/03/2024 04:48 PM Specimen Received: 05/03/2024 05:00 AM Source: [facility] Hemoglobin A1c [089740] 5.6 % 4.8- 5.6 % . Prediabetes: 5.7 - 6.4 Sara betes: >6.4 Glycemic control for adults with diabetes: 7.0 Allergies, adverse reactions, alerts No known allergies and adverse reactions Medications No administered medications reported Vital Signs No vital signs reported Social History No smoking Hx information available
== END 2025-03-20 12:02 | disposition home or self-care (01) ==
LOC: HO.ENCR 10:34
PROVIDERS: PCP Internal Medicine; Visit Provider Student in an Organized Health Care Education/Training Program
DX: M81.0 Age-related osteoporosis without current pathological fracture (principal)
CPT/HCPCS: 99204

== ENCOUNTER → 2025-03-20 10:33 | Outpatient (BNVA) | payer MEDICARE, SELFPAY | PROVIDERS: PCP Internal Medicine; Visit Provider Student in an Organized Health Care Education/Training Program | DX: M81.0 Age-related osteoporosis without current pathological fracture (principal) | CPT/HCPCS: 99202 ==